=== PATIENT | male | born 1950 | race Caucasian/White ===

== ENCOUNTER 2019-06-04 12:06 | Inpatient (IN) | payer MEDICARE, OTHER ==
[~2019-06-04] VITALS: Ht 190.5 cm; Wt 127.6 kg
[2019-06-04] MEDS ORDERED: NS 1,000 ML IV ONE (12:30)
[2019-06-04] MEDS ORDERED: PANTOPRAZOLE 40MG INJ (PROTONIX) (C9113) IV ONE (12:30)
[2019-06-04] MEDS ORDERED: ONDANSETRON 4MG/2ML VIAL (J2405) IV ONE (12:30)
[2019-06-04 12:54] LABS: BASO # 0.1 10^3/uL (0.0-0.2); BASO % 0.6 % (0.0-1.0); EOS % 0.2 % (0.0-3.0); HEMATOCRIT 29.5 % (42.0-52.0); HEMOGLOBIN 9.3 g/dl (13.5-17.5); LYMPH # 1.1 10^3/uL (1.5-4.5); LYMPH % 9.2 % (24.0-44.0); MEAN CORPUSCULAR HEMOGLOBIN 28.2 pg (27.0-33.0); MEAN CORPUSCULAR HGB CONC 31.5 g/dl (32.0-36.5); MEAN CORPUSCULAR VOLUME 89.4 fl (80.0-96.0); MONO # 0.7 10^3/uL (0.0-0.8); MONO % 5.4 % (0.0-5.0); NEUTROPHILS # 10.3 10^3/uL (1.8-7.7); PLATELET COUNT, AUTOMATED 327 10^3/uL (150-450); WHITE BLOOD COUNT 12.3 10^3/uL (4.0-10.0)
[2019-06-04 13:04] LABS: INR 3.24; PROTHROMBIN TIME 33.1 SECONDS (11.8-14.0)
[2019-06-04 13:21] LABS: ALBUMIN 2.9 GM/DL (3.2-5.2); ALT/SGPT 33 U/L (12-78); BILIRUBIN,DIRECT 0.1 MG/DL (0.0-0.2); BILIRUBIN,TOTAL 0.2 MG/DL (0.2-1.0); BLOOD UREA NITROGEN 24 MG/DL (7-18); CALCIUM LEVEL 8.9 MG/DL (8.8-10.2); CARBON DIOXIDE LEVEL 22 MEQ/L (21-32); CHLORIDE LEVEL 114 MEQ/L (98-107); CREATININE FOR GFR 0.92 MG/DL (0.70-1.30); GLOMERULAR FILTRATION RATE > 60.0 (>42); GLUCOSE, FASTING 155 MG/DL (70-100); LIPASE 76 U/L (73-393); POTASSIUM SERUM 4.4 MEQ/L (3.5-5.1); SODIUM LEVEL 142 MEQ/L (136-145); TOTAL PROTEIN 5.8 GM/DL (6.4-8.2)
--- NOTE | 2019-06-04 14:19 | REP ---
CT ABDOMEN AND PELVIS WITHOUT CONTRAST: CT abdomen and pelvis performed without oral or IV contrast. Sagittal and coronal reconstruction images are performed. Visualized lung bases demonstrate no evidence of infiltrate. The liver demonstrates probable diffuse fatty infiltration. Spleen, adrenals, pancreas and kidneys are grossly unremarkable. There is no renal or ureteral calculus and no hydroureteronephrosis. There is mild atherosclerotic calcification of the abdominal aorta without aneurysm. There is no adenopathy. There is no free air or free fluid. There is no bowel wall thickening. There is no appendicitis. No pelvic mass is seen. Urinary bladder is mildly distended and grossly unremarkable. There is a small umbilical hernia containing fat. There are degenerative changes of the spine. IMPRESSION: Small umbilical hernia contains fat. No acute bowel abnormality is seen. There appears to be diffuse fatty infiltration of the liver. Electronically Signed by Gallo Keating MD 06/05/2019 10:35 A
[2019-06-04] MEDS ORDERED: CART240C3 PO (14:21)
[2019-06-04] MEDS ORDERED: WARF4TAB52 PO (14:21)
[2019-06-04] MEDS ORDERED: LISI-538 PO (14:21)
[2019-06-04] MEDS ORDERED: FENO145T13 PO (14:21)
[2019-06-04] MEDS ORDERED: TRAM50TA2 PO (14:21)
[2019-06-04] MEDS ORDERED: VALT500T PO (14:21)
[2019-06-04] MEDS ORDERED: TIKO500C PO (14:21)
[2019-06-04] MEDS ORDERED: FISH1000 PO (14:23)
[2019-06-04] MEDS ORDERED: IBUP200T45 PO (14:23)
[2019-06-04] MEDS ORDERED: APAP325T4 PO (14:23)
[2019-06-04] MEDS ORDERED: GLUCTAB6 PO (14:23)
[2019-06-04 15:30] VITALS: BP 114/70
[2019-06-04] MEDS ORDERED: ONDANSETRON 4MG/2ML VIAL (J2405) IV PRN (15:45)
[2019-06-04] MEDS: NS 1,000 ML IV SCH (16:09)
[2019-06-04 17:20] LABS: HEMATOCRIT 27.1 % (42.0-52.0); HEMOGLOBIN 8.7 g/dl (13.5-17.5); MEAN CORPUSCULAR HEMOGLOBIN 28.6 pg (27.0-33.0); MEAN CORPUSCULAR HGB CONC 32.1 g/dl (32.0-36.5); MEAN CORPUSCULAR VOLUME 89.1 fl (80.0-96.0); PLATELET COUNT, AUTOMATED 305 10^3/uL (150-450); RED BLOOD COUNT 3.04 10^6/uL (4.30-6.10); WHITE BLOOD COUNT 14.2 10^3/uL (4.0-10.0)
--- NOTE | 2019-06-04 19:59 | ECGEPIP ---
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
[2019-06-04 20:00] VITALS: BP 134/71
--- NOTE | 2019-06-04 20:31 | HPEPDOC ---
General Date of Admission Jun 04, 2019 at 14:00 Date of Service: Jun 04, 2019 Chief Complaint The patient is a 68-year-old male admitted with a reason for visit of Gi Bleed. Source: Patient, Family Exam Limitations: No limitations Timing/Duration: 4-6 hours Severity: Mild Associated Symptoms: Diaphoresis, Nausea, Vomiting, Dizziness History of Present Illness This is 68-year-old male who was in his usual good health. This morning he noted with a bowel movement this morning that his stools were "discolored. By this he meant they were accompanied by red blood. He then developed diarrhea at which point he states his stools were black. He then developed dizziness and called paramedics to bring him to the emergency room. He did have some nausea and then upon coming to the ER, had a couple of episodes of large volume emesis. There was no blood with this. He did have an additional large black diarrhea stool. He did not have any abdominal pain or cramping associated with this. He also did not have any palpitations. He did note nausea and sweats. Home Medications Scheduled Diltiazem HCl (Cartia Xt) 240 Mg Cap.er.24h, 240 MG PO DAILY, (Reported) Dofetilide (Tikosyn) 500 Mcg Capsule, 500 MCG PO BID, (Reported) Fenofibrate Nanocrystallized (Fenofibrate) 145 Mg Tablet, 145 MG PO DAILY, (Reported) Gluc Tinsley/Chondro Tinsley A/Vit C/Mn (Glucosamine Chondroitin Tab) 1 Each Tablet, 1 TAB PO DAILY, (Reported) Lisinopril (Lisinopril) 20 Mg Tablet, 20 MG PO DAILY, (Reported) [place]-3 Fatty Acids/Fish Oil (Fish Oil 1,000 mg Capsule) 1 Each Capsule, 2,000 MG PO DAILY, (Reported) Pantoprazole Sodium (Protonix) 40 Mg Tablet.dr, 40 MG PO BID Scheduled PRN Acetaminophen (Acetaminophen) 325 Mg Tablet, 650 MG PO Q4H PRN for PAIN, (Reported) Tramadol HCl (Tramadol HCl) 50 Mg Tablet, 50 MG PO Q6H PRN for PAIN, (Reported) Valacyclovir HCl (Valtrex) 500 Mg Tablet, 500 MG PO for COLD SORES, (Reported) Allergies Coded Allergies: niacin (Verified Adverse Reaction, Severe, gets hot, 06/04/19) Past Medical History Medical History Past medical history is remarkable for: Dyslipidemia, hypertension, prostate cancer, chronic atrial fibrillation for which he is on chronic anticoagulation with Coumadin, essential hypertension. Of additional interest, the patient underwent cardioversion 2-1/2 years ago and has not had significant tachyarrhythmias since. Surgical History Surgical history includes hernia repair 2, pilonidal cyst excision, prostate resection. Additional procedure includes colonoscopy within the past year. 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 Physical Examination General Exam: Positive: Alert, Cooperative, No Acute Distress Eye Exam: Positive: PERRLA, Conjunctiva & lids normal, EOMI ENT Exam: Positive: Atraumatic, Mucous membr. moist/pink, Tongue Midline, Nares Patent Neck Exam: Positive: Supple; Negative: JVD, thyromegaly Chest Exam: Positive: Clear to auscultation, Normal air movement Heart Exam: Positive: Rate Normal, Regular Rhythm, Normal S1, Normal S2 Abdomen Exam: Positive: Normal bowel sounds, Soft; Negative: Tenderness, Hepatospenomegaly Extremity Exam: Positive: Normal pulses; Negative: Clubbing, Cyanosis, Edema Skin Exam: Positive: Nl turgor and temperature; Negative: Breakdown, Lesion Neuro Exam: Positive: Strength at 5/5 X4 ext, Sensation Intact, Cranial Nerves 3-12 NL Psych Exam: Positive: Mental status NL Vital Signs Vital Signs Date Time Temp Pulse Resp B/P (MAP) Pulse Ox O2 Delivery O2 Flow Rate FiO2 06/04/19 15:30 97.8 78 18 114/70 (85) 98 06/04/19 15:15 Room Air Laboratory Data Labs 24H Laboratory Tests 2 06/04/19 12:42: Immature Granulocyte % (Auto) 0.6, White Blood Count 12.3H, Red Blood Count 3.30L, Hemoglobin 9.3L, Hematocrit 29.5L, Mean Corpuscular Volume 89.4, Mean Corpuscular Hemoglobin 28.2, Mean Corpuscular Hemoglobin Concent 31.5L, Red Cell Distribution Width 13.3, Platelet Count 327, Neutrophils (%) (Auto) 84.0H, Lymphocytes (%) (Auto) 9.2L, Monocytes (%) (Auto) 5.4H, Eosinophils (%) (Auto) 0.2, Basophils (%) (Auto) 0.6, Neutrophils # (Auto) 10.3H, Lymphocytes # (Auto) 1.1L, Monocytes # (Auto) 0.7, Eosinophils # (Auto) 0.0, Basophils # (Auto) 0.1, Nucleated Red Blood Cells % (auto) 0.0, Prothrombin Time 33.1H, Prothromb Time International Ratio 3.24, Anion Gap 6L, Glomerular Filtration Rate > 60.0, Calcium Level 8.9, Aspartate Amino Transf (AST/SGOT) 29, Alanine Aminotransferase (ALT/SGPT) 33, Alkaline Phosphatase 62, Total Bilirubin 0.2, Direct Bilirubin 0.1, Total Protein 5.8L, Albumin 2.9L, Albumin/Globulin Ratio 1.00, Lipase 76 06/04/19 16:50: Nucleated Red Blood Cells % (auto) 0.0 CBC/BMP Laboratory Tests 06/04/19 12:42 Red Blood Count 3.30 L, Mean Corpuscular Volume 89.4, Mean Corpuscular Hemogl obin 28.2, Mean Corpuscular Hemoglobin Concent 31.5 L, Red Cell Distribution Width 13.3, Neutrophils (%) (Auto) 84.0 H, Lymphocytes (%) (Auto) 9.2 L, Monocytes (%) (Auto) 5.4 H, Eosinophils (%) (Auto) 0.2, Basophils (%) (Auto) 0.6, Neutrophils # (Auto) 10.3 H, Lymphocytes # (Auto) 1.1 L, Monocytes # (Auto) 0.7, Eosinophils # (Auto) 0.0, Basophils # (Auto) 0.1 06/04/19 16:50 Red Blood Count 3.04 L, Mean Corpuscular Volume 89.1, Mean Corpuscular Hemoglobin 28.6, Mean Corpuscular Hemoglobin Concent 32.1, Red Cell Distribution Width 13.6 Assessment/Plan #1. Lower GI bleed. This is being referred to as a lower GI bleed as there was no blood noted with his emesis. Hemoglobin is currently stable at 9.3. We will continue to monitor this and transfuse as needed. We have contacted the GI service and patient will likely need to undergo evaluation by endoscopy. His being on Coumadin may be contributory. We have held his Coumadin for now. If he has a significant drop to his hemoglobin, we may need to reverse his Coumadin at least partially with FFP. #2. Chronic atrial fibrillation. We will keep the patient on his rate control medications in the form of diltiazem and Tikosyn. Tikosyn is not on formulary; will need to bring from home. Plan / VTE VTE Prophylaxis Ordered?: No VTE Exclusion Pharmacological: Active Bleeding Plan IVF: Initiate Diet: Make NPO Activity: Continue Current Diagnostics: Repeat Labs in AM Anticipated Discharge: Home Advanced Directives: Do Not Resuscitate (DNR), Do Not Intubate (DNI) COREY GREGORY MD Jun 04, 2019 20:31
[2019-06-04 22:13] LABS: HEMATOCRIT 24.2 % (42.0-52.0); HEMOGLOBIN 7.7 g/dl (13.5-17.5); MEAN CORPUSCULAR HEMOGLOBIN 28.3 pg (27.0-33.0); MEAN CORPUSCULAR HGB CONC 31.8 g/dl (32.0-36.5); PLATELET COUNT, AUTOMATED 301 10^3/uL (150-450); RED BLOOD COUNT 2.72 10^6/uL (4.30-6.10); WHITE BLOOD COUNT 14.4 10^3/uL (4.0-10.0)
[2019-06-04 23:59] VITALS: BP 131/73
[2019-06-05] MEDS: PANTOPRAZOLE 40MG INJ (PROTONIX) (C9113) IV SCH ×2 (01:35→12:10)
[2019-06-05 04:00] VITALS: BP 101/55
[2019-06-05] MEDS: NS 1,000 ML IV SCH ×3 (05:05→18:25)
[2019-06-05 06:09] LABS: HEMATOCRIT 21.3 % (42.0-52.0); MEAN CORPUSCULAR VOLUME 87.3 fl (80.0-96.0); PLATELET COUNT, AUTOMATED 275 10^3/uL (150-450); RED BLOOD COUNT 2.44 10^6/uL (4.30-6.10); WHITE BLOOD COUNT 12.9 10^3/uL (4.0-10.0)
[2019-06-05 06:19] LABS: HEMOGLOBIN 6.6 g/dl (13.5-17.5)
[2019-06-05 06:21] LABS: INR 2.15; PROTHROMBIN TIME 23.8 SECONDS (11.8-14.0)
[2019-06-05 06:28] LABS: BLOOD UREA NITROGEN 22 MG/DL (7-18); CALCIUM LEVEL 8.4 MG/DL (8.8-10.2); CARBON DIOXIDE LEVEL 24 MEQ/L (21-32); CHLORIDE LEVEL 113 MEQ/L (98-107); CREATININE FOR GFR 0.94 MG/DL (0.70-1.30); GLOMERULAR FILTRATION RATE > 60.0 (>42); GLUCOSE, FASTING 104 MG/DL (70-100); POTASSIUM SERUM 4.1 MEQ/L (3.5-5.1); SODIUM LEVEL 142 MEQ/L (136-145)
[2019-06-05 08:00] VITALS: BP 131/69
[2019-06-05] MEDS: LISINOPRIL 20 MG TAB PO SCH (08:57)
[2019-06-05] MEDS: TIKOSYN 500 MCG PO SCH ×2 (08:58→21:50)
--- NOTE | 2019-06-05 09:43 | CR.PDOC ---
General Date of Consultation: Jun 05, 2019 Referring Provider: COERY GREGORY MD Attending Physician: RAQUEL EVANS MD Consultation Patient is examined on 06/04/2019. Primary physician : PCP in [place]. Reason for consult: Melena and drop in hemoglobin. HPI: 68 year old male patient with HTN, DLD, prostate cancer s/p surgery, no radiation, atrial fibrillation and prior h/o cardioversion and on chronic anticoagulation with coumadin, presented to ER for multiple episodes of dark bloody bowel movements. Patient reports the symptoms started today morning, with diarrheal black stools, total 3 bowel movements, last at 10:30 AM. Patient noted dizziness and in the ER ration did have 2 episodes of vomiting. Patient also reports taking Advil intermittently for his right knee pain. Pertinent negative GI symptoms: Patient denies abdominal pain, loss of appetite, early satiety or unintentional weight loss. No history of hematemesis. Patient reports regular bowel movements. Review of Systems: GI: as stated above CVS: No chest pain, No palpitations, No leg swelling. RS: No Shortness of breath, No Wheezing, no cough DIRECTOR OF CURRICULUM: Had episode of dizziness, No motor weakness, No sensory problems Hematology: No bruising, No gum bleeding, Musculoskeletal: No joint pain, ambulating well. Skin: No rash : No hematuria, No burning sensation of the urine ENT: No ear discharge/ pain, No dysphagia. Eyes: No photophobia. Home medications: reviewed. Antithrombotic agents - on Coumadin. Medical h/o: As above. Surgical h/o: None on abdomen. Social h/o: Alcohol- social, tobacco-denies, IVDA/ drugs- Denies. Family h/o of GI cancers -multiple family members with cancers, no colon cancer. Prior Endoscopies: --- EGD -none --- Colonoscopy -in 2018, in [place] done for screening and noted to have few polyps which were removed. No Diverticulosis ( as per patient). Prior GI evaluation: None in [facility] Exam: Vitals: reviewed General: Alert and oriented x 3, not in distress HEENT: NO pallor, no icterus. Normal oropharynx, NO cervical lymph nodes. Chest: symmetric with bilateral clear air entry, CVS: S1, S2 heard, normal, no murmurs . Abdomen: non-distended, no surgical scars, soft, non-tender, no palpable masses, normal bowel sounds heard. Rectal exam: noted melanotic stool. Extremities: no pedal edema, pulses palpable. DIRECTOR OF CURRICULUM: no focal motor or sensory deficits. Moves all extremities Skin: no rash. Labs: reviewed. Imaging tests: reviewed Pertinent positives: Impression: - Acute onset GI bleeding with dark/ melanotic stools in patient on An ticoagulation and supratherapeutic INR, and recent use of NSAIDs -- DDx -- Suspected Upper GI bleeding from PUD vs AVMs vs Diverticular bleeding or Right colonic AVM bleeding ( less likely as recent colonoscopy normal as per patient). Recommendations: - Patient educated about the test results, possible differential diagnoses and All questions answered. - Please start on IV pantoprazole 40 mg twice daily. - Monitor H/H and transfuse as needed to keep hemoglobin levels above 8. - Correction of coagulopathy as per primary team. - Hold anticoagulation for now if not contraindicated. - NPO / Clear liquids with Ice chips for now ( Needs NPO for 4 hours prior to procedure). - Educated patient and his to call his PCP clinic [facility] Colonoscopy report faxed to [facility] (fax number to floor , discussed with nurse). - Will schedule for urgent EGD today. - The procedure, indications, risks (bleeding, perforation, infection, hypotension, respiratory depression, allergy, need for endotracheal intubation, surgery, colostomy, cardiac arrest, even ), benefits, limitations (e.g., missing a lesion), and all other alternatives (including no intervention) were explained to the patient who understood and agreed for the procedure. - Depending on the EGD findings and clinical course - will schedule for Colonoscopy as well. Plan of care discussed with patient and primary team. Patient verbalized understanding and agreed with the plan. Vital Signs/I&O Vital Signs Date Time Temp Pulse Resp B/P (MAP) Pulse Ox O2 Delivery O2 Flow Rate FiO2 06/05/19 08:57 132/68 06/05/19 08:00 98.8 77 20 97 06/04/19 15:15 Room Air I&O- Last 24 Hours up to 6 AM 06/05/19 06:00 Intake Total 1750 ml Output Total 0 ml Balance 1750 ml Laboratory Data CBC/BMP Laboratory Tests 06/04/19 12:42 06/04/19 16:50 Red Blood Count 3.04 L, Mean Corpuscular Volume 89.1, Mean Corpuscular Hemoglobin 28.6, Mean Corpuscular Hemoglobin Concent 32.1, Red Cell Distribution Width 13.6 06/04/19 22:07 06/05/19 05:47 Allergies Coded Allergies: niacin (Verified Adverse Reaction, Severe, gets hot, 06/04/19) Home Medications Scheduled Diltiazem HCl (Cartia Xt) 240 Mg Cap.er.24h, 240 MG PO DAILY, (Reported) Dofetilide (Tikosyn) 500 Mcg Capsule, 500 MCG PO BID, (Reported) Fenofibrate Nanocrystallized (Fenofibrate) 145 Mg Tablet, 145 MG PO DAILY, (Reported) Gluc Tinsley/Chondro Tinsley A/Vit C/Mn (Glucosamine Chondroitin Tab) 1 Each Tablet, 1 TAB PO DAILY, (Reported) Lisinopril (Lisinopril) 20 Mg Tablet, 20 MG PO DAILY, (Reported) [place]-3 Fatty Acids/Fish Oil (Fish Oil 1,000 mg Capsule) 1 Each Capsule, 2,000 MG PO DAILY, (Reported) Warfarin Sodium (Warfarin Sodium) 1 Mg Tablet, 7 MG PO DAILY, (Reported) Scheduled PRN Acetaminophen (Acetaminophen) 325 Mg Tablet, 650 MG PO Q4H PRN for PAIN, (Reported) Ibuprofen (Ibu-200) 200 Mg Tablet, 200 MG PO Q6H PRN for PAIN, (Reported) Tramadol HCl (Tramadol HCl) 50 Mg Tablet, 50 MG PO Q6H PRN for PAIN, (Reported) Valacyclovir HCl (Valtrex) 500 Mg Tablet, 500 MG PO for COLD SORES, (Reported) RAQUEL EVANS MD Jun 05, 2019 09:43
--- NOTE | 2019-06-05 11:42 | IPNPDOC ---
Date Seen The patient was seen on 06/05/19. Progress Note SUBJECTIVE: Patient is a 68-year-old male admitted with bloody stools. Events of overnight are that he had additional bloody stools. He's had further decrease to his hemoglobin. He is in the process of receiving FFP and packed red blood cells in preparation for endoscopy. He has not had additional symptoms of dizziness or lightheadedness. The patient is usually on Coumadin for chronic anticoagulation for his atrial fibrillation. This has been held. OBJECTIVE PHYSICAL EXAMINATION: VITAL SIGNS: Please see below. HENT: Neck is supple with no adenopathy or thyromegaly, oral mucosa is moist, he has not had any bleeding from the nose or gums. Cardiovascular: Regular rate and rhythm with a normal S1 and S2. Respiratory: Clear to auscultation with normal air movement, no wheezing or cough. Abdomen: Soft, nontender, nondistended, notable central obesity. Extremities: Pedal pulses palpable bilaterally, no peripheral edema. Neuro: No focal neuromotor deficit, patient notes restless leg symptoms. LABORATORY DATA, IMAGING STUDIES, MICROBIOLOGY: Please see below. Echocardiogram: . DVT prophylaxis ordered?: None ASSESSMENT AND PLAN: This is a 68-year-old male with apparent lower GI bleed. PROBLEMS: 1. Acute blood loss anemia. The patient has had hemoglobin drop from 9.3 at admission down to 6.6 this morning after additional bloody stools. Patient is to receive 1-2 units of packed red blood cells. Patient is normally on Coumadin for chronic anticoagulation for atrial fibrillation; this has been held. INR this morning was 2.15. Patient is receiving FFP in preparation for evaluation by upper and lower endoscopy. We appreciate the assistance of the GI service. 2. Chronic atrial fibrillation. Patient continues on his rate control medications in the form of diltiazem and Tikosyn; patient is taking his Tikosyn from his supply at home. As the patient's clinical condition has become more acute patient is being transitioned to inpatient status. DISPOSITION: . VS, I&O, 24H, Fishbone Vital Signs/I&O Vital Signs Date Time Temp Pulse Resp B/P (MAP) Pulse Ox O2 Delivery O2 Flow Rate FiO2 06/05/19 08:57 132/68 06/05/19 08:00 98.8 77 20 97 06/04/19 15:15 Room Air I&O- Last 24 Hours up to 6 AM 06/05/19 06:00 Intake Total 1750 ml Output Total 0 ml Balance 1750 ml Laboratory Data 24H LABS Laboratory Tests 2 06/04/19 12:42: Immature Granulocyte % (Auto) 0.6, White Blood Count 12.3H, Red Blood Count 3.30L, Hemoglobin 9.3L, Hematocrit 29.5L, Mean Corpuscular Volume 89.4, Mean Corpuscular Hemoglobin 28.2, Mean Corpuscular Hemoglobin Concent 31.5L, Red Cell Distribution Width 13.3, Platelet Count 327, Neutrophils (%) (Auto) 84.0H, Lymphocytes (%) (Auto) 9.2L, Monocytes (%) (Auto) 5.4H, Eosinophils (%) (Auto) 0.2, Basophils (%) (Auto) 0.6, Neutrophils # (Auto) 10.3H, Lymphocytes # (Auto) 1.1L, Monocytes # (Auto) 0.7, Eosinophils # (Auto) 0.0, Basophils # (Auto) 0.1, Nucleated Red Blood Cells % (auto) 0.0, Prothrombin Time 33.1H, Prothromb Time International Ratio 3.24, Anion Gap 6L, Glomerular Filtration Rate > 60.0, Calcium Level 8.9, Aspartate Amino Transf (AST/SGOT) 29, Alanine Aminotransferase (ALT/SGPT) 33, Alkaline Phosphatase 62, Total Bilirubin 0.2, Direct Bilirubin 0.1, Total Protein 5.8L, Albumin 2.9L, Albumin/Globulin Ratio 1.00, Lipase 76 06/04/19 16:50: Nucleated Red Blood Cells % (auto) 0.0 06/04/19 22:07: Nucleated Red Blood Cells % (auto) 0.0 06/05/19 05:47: Nucleated Red Blood Cells % (auto) 0.0, Prothrombin Time 23.8H, Prothromb Time International Ratio 2.15, Anion Gap 5L, Glomerular Filtration Rate > 60.0, Calci um Level 8.4L, Blood Urea Nitrogen 22H, Creatinine 0.94, Sodium Level 142, Potassium Level 4.1, Chloride Level 113H, Carbon Dioxide Level 24 CBC/BMP Laboratory Tests 06/04/19 12:42 Red Blood Count 3.30 L, Mean Corpuscular Volume 89.4, Mean Corpuscular Hemoglobin 28.2, Mean Corpuscular Hemoglobin Concent 31.5 L, Red Cell Distribution Width 13.3, Neutrophils (%) (Auto) 84.0 H, Lymphocytes (%) (Auto) 9.2 L, Monocytes (%) (Auto) 5.4 H, Eosinophils (%) (Auto) 0.2, Basophils (%) ( Auto) 0.6, Neutrophils # (Auto) 10.3 H, Lymphocytes # (Auto) 1.1 L, Monocytes # (Auto) 0.7, Eosinophils # (Auto) 0.0, Basophils # (Auto) 0.1 06/04/19 16:50 Red Blood Count 3.04 L, Mean Corpuscular Volume 89.1, Mean Corpuscular Hemoglobin 28.6, Mean Corpuscular Hemoglobin Concent 32.1, Red Cell Distribution Width 13.6 06/04/19 22:07 Red Blood Count 2.72 L, Mean Corpuscular Volume 89.0, Mean Corpuscular Hemoglobin 28.3, Mean Corpuscular Hemoglobin Concent 31.8 L, Red Cell Distribution Width 13.6 06/05/19 05:47 Red Blood Count 2.44 L, Mean Corpuscular Volume 87.3, Mean Corpuscular Hemoglobin 27.0, Mean Corpuscular Hemoglobin Concent 31.0 L, Red Cell Distribution Width 13.7, Calcium Level 8.4 L COREY GREGORY MD Jun 05, 2019 11:42
[2019-06-05 12:00] VITALS: BP 109/58
[2019-06-05] MEDS ORDERED: FUROSEMIDE 20 MG/2 ML VIAL (J1940) IV ONE (12:00)
[2019-06-05 12:18] LABS: BASO # 0.1 10^3/uL (0.0-0.2); BASO % 0.6 % (0.0-1.0); EOS # 0.5 10^3/uL (0.0-0.50); EOS % 4.1 % (0.0-3.0); HEMATOCRIT 24.4 % (42.0-52.0); HEMOGLOBIN 7.6 g/dl (13.5-17.5); LYMPH # 2.1 10^3/uL (1.5-4.5); LYMPH % 18.4 % (24.0-44.0); MEAN CORPUSCULAR HEMOGLOBIN 27.9 pg (27.0-33.0); MEAN CORPUSCULAR HGB CONC 31.1 g/dl (32.0-36.5); MEAN CORPUSCULAR VOLUME 89.7 fl (80.0-96.0); MONO # 0.9 10^3/uL (0.0-0.8); MONO % 7.9 % (0.0-5.0); NEUTROPHILS # 7.8 10^3/uL (1.8-7.7); NEUTROPHILS % 68.3 % (36.0-66.0); PLATELET COUNT, AUTOMATED 294 10^3/uL (150-450); RED BLOOD COUNT 2.72 10^6/uL (4.30-6.10); WHITE BLOOD COUNT 11.5 10^3/uL (4.0-10.0)
[2019-06-05 12:30] LABS: INR 1.7; PROTHROMBIN TIME 19.7 SECONDS (11.8-14.0)
[2019-06-05] MEDS ORDERED: LIDOCAINE 2% INJ 100 MG/5 ML SDV (FOR ANES.) As Ordered ONE (14:46)
[2019-06-05] MEDS ORDERED: fentaNYL 100 MCG/2 ML INJECTION (J3010) As Ordered ONE (14:46)
[2019-06-05] MEDS ORDERED: PROPOFOL 200 MG/20 ML VIAL As Ordered ONE ×2 (14:47→15:24)
--- NOTE | 2019-06-05 16:01 | ROOR ---
Patient Name: Jake Corral Procedure Date: 06/05/2019 3:12 PM Date of : 1950 Age: 68 Room: [facility] Gender: Male Note Status: Finalized Procedure: Upper GI endoscopy Indications: Melena Providers: Juanito Hyde MD Referring MD: Court Wu Md Requesting Provider: Medicines: Monitored Anesthesia Care Complications: No immediate complications. Procedure: Pre-Anesthesia Assessment: - Prior to the procedure, a History and Physical was performed, and patient medications and allergies were reviewed. The patient is competent. The risks and benefits of the procedure and the sedation options and risks were discussed with the patient. All questions were answered and informed consent was obtained. Patient identification and proposed procedure were verified by the physician, the nurse and the anesthesiologist in the procedure room. Mental Status Examination: alert and oriented. Airway Examination: normal oropharyngeal airway and neck mobility. Respiratory Examination: clear to auscultation. CV Examination: normal. Prophylactic Antibiotics: The patient does not require prophylactic antibiotics. Prior Anticoagulants: The patient has taken no previous anticoagulant or antiplatelet agents. ASA Grade Assessment: III - A patient with severe systemic disease. After reviewing the risks and benefits, the patient was deemed in satisfactory condition to undergo the procedure. The anesthesia plan was to use monitored anesthesia care (MAC). Immediately prior to administration of medications, the patient was re-assessed for adequacy to receive sedatives. The heart rate, respiratory rate, oxygen saturations, blood pressure, adequacy of pulmonary ventilation, and response to care were monitored throughout the procedure. The physical status of the patient was re-assessed after the procedure. The Endoscope was introduced through the mouth, and advanced to the second part of duodenum. The upper GI endoscopy was accomplished without difficulty. The patient tolerated the procedure well. Findings: The examined esophagus was normal. One 15 mm sessile polyp with no bleeding and stigmata of recent bleeding was found in the gastric body. The polyp was removed with a cold snare. Resection and retrieval were complete. Verification of patient identification for the specimen was done by the physician and nurse using the patient's name, date and medical record number. Estimated blood loss was minimal. For hemostasis, two hemostatic clips were successfully placed. There was no bleeding at the end of the procedure. One non-bleeding cratered gastric ulcer with a flat pigmented spot (Sebastian Class IIc) was found in the prepyloric region of the stomach. The lesion was 30 mm in largest dimension. For hemostasis, one hemostatic clip was successfully placed. There was no bleeding at the end of the procedure. Two biopsies were obtained from heaped edges of the ulcer with cold forceps for histology. The duodenal bulb and second portion of the duodenum were normal. Impression: - Normal esophagus. - One gastric polyp. Resected and retrieved. Clips were placed. - Non-bleeding gastric ulcer with a flat pigmented spot (Sebastian Class IIc). Clip was placed. - Normal duodenal bulb and second portion of the duodenum. - Two biopsies were obtained from heaped edges of the ulcer. Recommendation: - Patient has a contact number available for emergencies. The signs and symptoms of potential delayed complications were discussed with the patient. Return to normal activities tomorrow. Written discharge instructions were provided to the patient. - Clear liquid diet for 1 day, then advance as tolerated to resume previous diet. - Continue present medications. - Observe patient's clinical course. - Give Protonix (pantoprazole): 8 mg/hr IV by continuous infusion for 1 day. - Use Protonix (pantoprazole) 40 mg PO twice daily - to be taken in morning (1/2 hour before breakfast) and at bedtime ( atleast 3 hours after last meal) for 3 months. - No ibuprofen, naproxen, or other non-steroidal anti-inflammatory drugs. - If Biopsy shows H. pylori will need therapy with antibiotic course.. - Risk of anticoagulation induced bleeding is high for the next 7 days, so consider Holding atleast till then. After that to consider anticoagulation based on the risks and benefits. - Repeat upper endoscopy in 2 months to check healing and to evaluate the response to therapy. - Return to GI clinic in 6 weeks. - Return to primary care physician. Juanito Hyde MD Juanito Hyde MD 06/05/2019 4:01:27 PM Electronically signed by Juanito Hyde MD Number of Addenda: 0 Note Initiated On: 06/05/2019 3:12 PM Estimated Blood Loss: Estimated blood loss was minimal.
[2019-06-05 16:30] VITALS: BP 118/83
[2019-06-05 20:00] VITALS: BP 112/54
[2019-06-05 23:59] VITALS: BP 103/60
[2019-06-06] MEDS: PANTOPRAZOLE 40MG INJ (PROTONIX) (C9113) IV SCH ×2 (00:22→12:18)
[2019-06-06 04:00] VITALS: BP 107/59
[2019-06-06 06:13] LABS: HEMATOCRIT 24.6 % (42.0-52.0); HEMOGLOBIN 7.8 g/dl (13.5-17.5); MEAN CORPUSCULAR HEMOGLOBIN 27.5 pg (27.0-33.0); MEAN CORPUSCULAR HGB CONC 31.7 g/dl (32.0-36.5); MEAN CORPUSCULAR VOLUME 86.6 fl (80.0-96.0); PLATELET COUNT, AUTOMATED 270 10^3/uL (150-450); RED BLOOD COUNT 2.84 10^6/uL (4.30-6.10); WHITE BLOOD COUNT 10.1 10^3/uL (4.0-10.0)
[2019-06-06 06:22] LABS: INR 1.55; PROTHROMBIN TIME 18.3 SECONDS (11.8-14.0)
[2019-06-06 06:30] LABS: BLOOD UREA NITROGEN 15 MG/DL (7-18); CALCIUM LEVEL 8.6 MG/DL (8.8-10.2); CARBON DIOXIDE LEVEL 25 MEQ/L (21-32); CHLORIDE LEVEL 112 MEQ/L (98-107); CREATININE FOR GFR 0.95 MG/DL (0.70-1.30); GLOMERULAR FILTRATION RATE > 60.0 (>42); GLUCOSE, FASTING 93 MG/DL (70-100); POTASSIUM SERUM 3.9 MEQ/L (3.5-5.1); SODIUM LEVEL 142 MEQ/L (136-145)
[2019-06-06 08:00] VITALS: BP 113/58
[2019-06-06] MEDS: LISINOPRIL 20 MG TAB PO SCH (09:44)
[2019-06-06] MEDS: TIKOSYN 500 MCG PO SCH ×2 (09:44→20:51)
[2019-06-06] MEDS: NS 1,000 ML IV SCH ×2 (10:10→11:44)
[2019-06-06 12:00] VITALS: BP 96/56
[2019-06-06 16:00] VITALS: BP 96/59
[2019-06-06 20:00] VITALS: BP 105/54
--- NOTE | 2019-06-06 20:48 | IPNPDOC ---
Text Note Date of Service The patient was seen on 06/06/19. NOTE Mr. Corral doing well. He has not had any abdominal pain, nausea or vomiti ng. He has not had any more red or black stools. Patient was admitted with what appeared to be lower GI bleed. On endoscopy. He was found to have a fairly large gastric ulcer. She will try factor was that the patient had been taking ibuprofen in addition to his Coumadin. PHYSICAL EXAMINATION: VITAL SIGNS: Please see below. HENT: Neck is supple with no adenopathy or thyromegaly, oral mucosa is moist, he has not had any bleeding from the nose or gums. Cardiovascular: Regular rate and rhythm with a normal S1 and S2. Respiratory: Clear to auscultation with normal air movement, no wheezing or cou gh. Abdomen: Soft, nontender, nondistended, notable central obesity. Extremities: Pedal pulses palpable bilaterally, no peripheral edema. Neuro: No focal neuromotor deficit, patient notes restless leg symptoms. ASSESSMENT/PLAN: 1. Acute blood loss anemia. The patient has had hemoglobin drop from 9.3 at admission down to 6.6. Patient received 2 units of packed red blood cells resulting in a hemoglobin of 7.8. We will transfuse an additional unit of packed red blood cells prior to discharge. Patient is normally on Coumadin for chronic anticoagulation for atrial fibrillation. Unfortunately, the patient has been taking this in addition to using ibuprofen for pain resulting in a significant bleeding gastric ulcer. The patient will remain on proton pump inhibitor for 3 months. Coumadin will be held for a week. 2. Chronic atrial fibrillation. Patient continues on his rate control medications in the form of diltiazem and Tikosyn; patient is taking his Tikosyn from his supply at home. He is normally on Coumadin for chronic anticoagulation. However, it is to be held for a week given his recent GI bleed in conjunction with the use of ibuprofen. His anticoagulation had been reversed with FFP so that the patient could undergo eval by endoscopy. VS,Fishbone, I+O VS, Fishbone, I+O Laboratory Tests 06/06/19 05:46 Red Blood Count 2.84 L, Mean Corpuscular Volume 86.6, Mean Corpuscular Hemoglobin 27.5, Mean Corpuscular Hemoglobin Concent 31.7 L, Red Cell Distribution Width 14.2, Calcium Level 8.6 L Vital Signs Date Time Temp Pulse Resp B/P (MAP) Pulse Ox O2 Delivery O2 Flow Rate FiO2 06/06/19 20:00 98.8 61 18 105/54 (71) 98 06/04/19 15:15 Room Air I&O- Last 24 Hours up to 6 AM 06/06/19 06:00 Intake Total 1740 ml Output Total 0 ml Balance 1740 ml COREY GREGORY MD Jun 06, 2019 20:48
[2019-06-06 23:59] VITALS: BP 105/62
[2019-06-07] MEDS: PANTOPRAZOLE 40MG INJ (PROTONIX) (C9113) IV SCH (00:31)
[2019-06-07 04:00] VITALS: BP 121/65
[2019-06-07 05:52] LABS: HEMATOCRIT 26.5 % (42.0-52.0); HEMOGLOBIN 8.7 g/dl (13.5-17.5); MEAN CORPUSCULAR HEMOGLOBIN 28.1 pg (27.0-33.0); MEAN CORPUSCULAR HGB CONC 32.8 g/dl (32.0-36.5); MEAN CORPUSCULAR VOLUME 85.5 fl (80.0-96.0); PLATELET COUNT, AUTOMATED 299 10^3/uL (150-450); WHITE BLOOD COUNT 10.4 10^3/uL (4.0-10.0)
[2019-06-07 06:11] LABS: BLOOD UREA NITROGEN 14 MG/DL (7-18); CARBON DIOXIDE LEVEL 25 MEQ/L (21-32); CHLORIDE LEVEL 111 MEQ/L (98-107); CREATININE FOR GFR 1.01 MG/DL (0.70-1.30); GLOMERULAR FILTRATION RATE > 60.0 (>42); GLUCOSE, FASTING 106 MG/DL (70-100); POTASSIUM SERUM 3.9 MEQ/L (3.5-5.1); SODIUM LEVEL 140 MEQ/L (136-145)
[2019-06-07 08:00] VITALS: BP 108/54
[2019-06-07 09:09] VITALS: BP 115/57
[2019-06-07] MEDS: LISINOPRIL 20 MG TAB PO SCH (09:09)
[2019-06-07] MEDS: TIKOSYN 500 MCG PO SCH (09:09)
[2019-06-07] MEDS ORDERED: PROT1TAB2 PO (09:10)
--- NOTE | 2019-06-07 18:58 | DS.PDOC ---
Discharge Summary General Date of Admission Jun 05, 2019 at 10:01 Date of Discharge June 07 2019 Specialist/Consultants Involve: RAQUEL EVANS MD Discharge Summary PROCEDURES PERFORMED DURING STAY: Transfusion of packed red blood cells, transfusion of FFP, EGD. ADMITTING DIAGNOSES: 1. Acute GI blood loss anemia. DISCHARGE DIAGNOSES: 1. Acute upper GI blood loss anemia resolved,Large gastric ulcer, dyslipidemia, essential hypertension, prostate cancer, chronic atrial fibrillation, essential hypertension. COMPLICATIONS/CHIEF COMPLAINT: Gi Bleed. HISTORY OF PRESENT ILLNESS/HOSPITAL COURSE: This is a 68-year-old male who was in his usual good health until the day of admission when he developed "discolored stools". There were initially blood red stools and then black. He developed accompanying dizziness, nausea and vomiting. The patient was initially hemodynamically stable. His hemoglobin was initially stable as well. The patient continued to have black stools and his hemoglobin then came down to 6.6. Concern was raised for upper versus lower GI bleeding source. Patient was transfused with packed red blood cells. Gastroenterology services was consult and the patient underwent evaluation by EGD. A large gastric ulcer was found. This underwent placement of a hemostatic clip. There was also resection of a gastric polyp. The patient is usually on chronic anticoagulation with Coumadin for his chronic atrial fibrillation. His Coumadin was held. This additional reverse with transfusion of FFP so that he can undergo evaluation. Additional contributory factor to the patient's bleeding episode was that unbeknownst to his family and against instructions the patient was taking NSAIDs in addition to his Coumadin. He was using the NSAIDs for knee pain. He has been strongly warned that he cannot use NSAIDs with Coumadin.. DISCHARGE MEDICATIONS: Please see below. ALLERGIES: Please see below. PHYSICAL EXAMINATION ON DISCHARGE: VITAL SIGNS: Please see below. HENT: Neck is supple with no adenopathy or thyromegaly, oral mucosa is moist, he has not had any bleeding from the nose or gums. Cardiovascular: Regular rate and rhythm with a normal S1 and S2. Respiratory: Clear to auscultation with normal air movement, no wheezing or cough. Abdomen: Soft, nontender, nondistended, notable central obesity. Extremities: Pedal pulses palpable bilaterally, no peripheral edema. Neuro: No focal neuromotor deficit, patient notes restless leg symptoms. LABORATORY DATA: Please see below. IMAGING: PROGNOSIS: ACTIVITY: As tolerated. DIET: Heart healthy DISCHARGE PLAN: The patient is stable for discharge to home. He has received transfusion of 3 units of FFP and 3 units of packed red blood cells. Hemoglobin at discharge is 8.7. INR at discharge is 1.55. The patient is to not resume Coumadin for at least 1 week or until he has seen his primary care provider Lamberto Goodson. He is to remain on Protonix 40 mg by mouth twice a day for appr oximately 3 months. He is to follow-up with Dr. Evnas in 2 months for repeat endoscopy. DISPOSITION: Home, Self-Care. DISCHARGE INSTRUCTIONS: 1. . ITEMS TO FOLLOWUP ON ON OUTPATIENT: 1. . DISCHARGE CONDITION: Stable. TIME SPENT ON DISCHARGE: Greater than 40 minutes. Vital Signs/I&Os Vital Signs Date Time Temp Pulse Resp B/P (MAP) Pulse Ox O2 Delivery O2 Flow Rate FiO2 06/07/19 09:09 74 115/57 06/07/19 08:00 97.8 18 97 06/04/19 15:15 Room Air I&O- Last 24 Hours up to 6 AM 06/07/19 05:59 Intake Total 1760 ml Output Total 400 ml Balance 1360 ml Laboratory Data Labs 24H Laboratory Tests 2 06/07/19 05:30: Nucleated Red Blood Cells % (auto) 0.0, Anion Gap 4L, Glomerular Filtration Rate > 60.0, Blood Urea Nitrogen 14, Creatinine 1.01, Sodium Level 140, Potassium Level 3.9, Chloride Level 111H, Carbon Dioxide Level 25, Calcium Level 9.0 CBC/BMP Laboratory Tests 06/07/19 05:30 Red Blood Count 3.10 L, Mean Corpuscular Volume 85.5, Mean Corpuscular Hemoglobin 28.1, Mean Corpuscular Hemoglobin Concent 32.8, Red Cell Distribution Width 14.4, Calcium Level 9.0 Discharge Medications Scheduled Diltiazem HCl (Cartia Xt) 240 Mg Cap.er.24h, 240 MG PO DAILY, (Reported) Dofetilide (Tikosyn) 500 Mcg Capsule, 500 MCG PO BID, (Reported) Fenofibrate Nanocrystallized (Fenofibrate) 145 Mg Tablet, 145 MG PO DAILY, (Reported) Gluc Tinsley/Chondro Tinsley A/Vit C/Mn (Glucosamine Chondroitin Tab) 1 Each Tablet, 1 TAB PO DAILY, (Reported) Lisinopril (Lisinopril) 20 Mg Tablet, 20 MG PO DAILY, (Reported) [place]-3 Fatty Acids/Fish Oil (Fish Oil 1,000 mg Capsule) 1 Each Capsule, 2,000 MG PO DAILY, (Reported) Pantoprazole Sodium (Protonix) 40 Mg Tablet.dr, 40 MG PO BID Scheduled PRN Acetaminophen (Acetaminophen) 325 Mg Tablet, 650 MG PO Q4H PRN for PAIN, (Reported) Tramadol HCl (Tramadol HCl) 50 Mg Tablet, 50 MG PO Q6H PRN for PAIN, (Reported) Valacyclovir HCl (Valtrex) 500 Mg Tablet, 500 MG PO for COLD SORES, (Reported) Allergies Coded Allergies: niacin (Verified Adverse Reaction, Severe, gets hot, 06/04/19) COREY GREGORY MD Jun 07, 2019 18:58
== END 2019-06-07 11:14 | disposition home or self-care (01) | DRG 378 ==
LOC: EDBD 12:06 → M ED 12:06 → M ED INP 14:00 → M PCU 15:39 → OBSVTOIN 06-05 10:01
PROVIDERS: ADMIT Internal Medicine; ATTEND Internal Medicine
PROC: 0W3P8ZZ Control Bleeding in Gastrointestinal Tract, Via Natural or Artificial Opening Endoscopic (ICD-10-PCS; 2019-06-05)
PROC: 0DB64ZX Excision of Stomach, Percutaneous Endoscopic Approach, Diagnostic (ICD-10-PCS; 2019-06-05)
PROC: 30233K1 Transfusion of Nonautologous Frozen Plasma into Peripheral Vein, Percutaneous Approach (ICD-10-PCS; 2019-06-05)
PROC: 30233N1 Transfusion of Nonautologous Red Blood Cells into Peripheral Vein, Percutaneous Approach (ICD-10-PCS; principal; 2019-06-05 13:20)
DX: K25.4 Chronic or unspecified gastric ulcer with hemorrhage (principal); D62 Acute posthemorrhagic anemia; E78.5 Hyperlipidemia, unspecified; I48.2 Chronic atrial fibrillation; I10 Essential (primary) hypertension; K31.7 Polyp of stomach and duodenum; Z79.899 Other long term (current) drug therapy; Z79.01 Long term (current) use of anticoagulants; Z87.891 Personal history of nicotine dependence; Z85.46 Personal history of malignant neoplasm of prostate